=== PATIENT | female | born 1970 | race Caucasian/White ===

== ENCOUNTER → 2019-07-11 | Outpatient (CLI) | payer OTHER ==
--- NOTE | 2019-07-11 12:59 | RAD ---
AP and lateral views cervical spine 07/11/2019 INDICATION: Cervical and lumbar arthritis COMPARISON STUDY: None Discussion: AP and lateral views of the cervical spine demonstrate no evidence of acute fracture or alignment abnormality the cervicothoracic junction is poorly visualized on lateral view secondary to overlying soft tissues. No prevertebral soft tissue thickening is seen. Disc spaces are maintained. Facet joints appear normal. No gross disruption of the atlantoaxial articulation is identified. IMPRESSION: Unremarkable radiographic appearance of the visualized cervical spine Electronically signed by: Reynaldo Norris MD (07/11/2019 12:57 PM) [id number]
--- NOTE | 2019-07-11 17:55 | RAD ---
Examination: LUMBAR SPINE 2-3V History: Pain, radiculopathy. Comparison/Correlation: None Findings: Frontal, lateral view, and cone-down L5-S1 lateral views of the lumbar spine were provided. Levo convexity of the upper lumbar spine noted. Right upper quadrant surgical clips are present. Vertebral body heights are adequate. Lower lumbar spine facet joint degenerative changes are present. No fracture or bone destruction. Evaluation for disc space narrowing is limited due to obliquity on the lateral view provided and scoliosis. Impression: Low lumbar spine facet joint degenerative change. Electronically signed by: Daniel Ramírez MD (07/11/2019 5:52 PM) [facility]
== END ==
LOC: RAD 10:26
PROVIDERS: ATTEND Family Medicine
DX: Z02.71 Encounter for disability determination (principal); M47.26 Other spondylosis with radiculopathy, lumbar region; Z96.89 Presence of other specified functional implants
CPT/HCPCS: 72040; 72100